=== PATIENT | male | born 1990 | race Caucasian/White ===

== ENCOUNTER 2025-01-27 11:37 | Inpatient (IN) | payer SELFPAY ==
[2025-01-27 12:23] LABS: Absolute Lymphocytes (CBC) 1.5 K/uL (0.7-4.9); Hematocrit 49.1 % (39.6-49.0); Hemoglobin 16.4 g/dL (13.6-17.9); MCH 31.6 pg (27.0-35.0); MCHC 33.4 g/dL (32.0-36.0); MCV 94.7 fL (80-100); MPV 7.9 fL (7.6-11.3); Nucleated RBC Absolute Count 0.0 (0-0); Nucleated Red Blood Cells % 0.0 % (0-0); RBC Red Blood Cell Count 5.18 M/uL (4.33-5.43); White Blood Count 17.60 thou/uL (4.3-10.9)
[2025-01-27] MEDS ORDERED: MORPHINE 4 MG/ML SYR ONE (12:29)
[2025-01-27] MEDS ORDERED: ONDANSETRON 4 MG/2 ML VIAL ONE (12:30)
[2025-01-27] MEDS ORDERED: NA CHLORIDE 0.9% 1,000 ML ONE (12:30)
[2025-01-27 12:41] LABS: ALT/SGPT 30.0 U/L (16-61); AST/SGOT 12.0 U/L (15-37); Albumin 3.8 g/dL (3.4-5.0); Albumin/Globulin Ratio 1.0 (1.1-1.8); Alkaline Phosphatase 81.0 U/L (45-117); Anion Gap 10.7 mEq/L (5.0-15.0); BUN Blood Urea Nitrogen 12.0 mg/dL (7-18); Globulin 3.9 g/dL (2.3-3.5); Glucose Level 113.0 mg/dL (74-106); Potassium 3.7 mEq/L (3.5-5.1)
--- NOTE | 2025-01-27 13:11 | RAD REPORT ---
EXAM: Scrotum Testicles HISTORY: 34 years Male Left sided swelling / drainage COMPARISON: None TECHNIQUE: Multiplanar grayscale and color Doppler images were obtained in a testicular/scrotal ultra sound. Spectral analysis of the Doppler waveforms of the testicles were performed. FINDINGS: Right testicle: Normal in echogenicity. No focal mass. Normal internal flow. The right testicle nalini ures 3.5 x 2 x 3.3 cm with volume of 12 mL. Left testicle: Normal in echogenicity. No focal mass. Normal internal flow. The left testicle measur es 5.4 x 2.2 x 3.7 cm with volume of 23.3 mL. Right epididymis. No epididymal cyst. Normal internal flow. Left epididymis. No epididymal cyst. Normal internal flow. No significant hydroceles. Bilateral varicoceles. At the area of concern in the left groin, there are areas of rounded masslike hypoechogenicity withou t vascular flow with intermixed areas of echogenicity. This may reflect some fluid and fat within a left inguinal hernia. IMPRESSION: Area of concern at the left groin corresponds with possible small fluid collections and interspersed echogenic fat that may represent an inguinal hernia. CT may be helpful to better characterize. Bilateral testicular blood flow. Bilateral varicoceles.
[2025-01-27] MEDS ORDERED: NA CHLORIDE 0.9% 100 ML ONE (13:29)
[2025-01-27] MEDS ORDERED: PIPERACIL/TAZO 3.375 GM VIAL IV ONE (13:30)
[2025-01-27 13:36] LABS: Blood Morphology Comment NOT SEEN (NOT SEEN); White Blood Cell Scan OK (OK)
--- NOTE | 2025-01-27 13:42 | ER ---
Nurse's Notes [facility] Name: Timo Sykes Age: 34 yrs Sex: Male : 1990 Arrival Date: 01/27/2025 Time: 11:37 Bed 10 Private MD: Diagnosis: Scrotal pain-abscess Presentation: 01/27 12:02 Chief complaint: Patient states: LT SCROTAL SWELLING, PAIN, REDNESS AND DRAINAGE. dd2 NOTICED ABOUT 4 DAYS AGO, WORSE THE PAST 2 DAYS. TOOK EXTRA ANTIBIOTICS FOUND AT THE HOUSE, BACTRIM. Coronavirus screen: At this time, the client does not indicate any symptoms associated with coronavirus-19. Ebola Screen: No symptoms or risks identified at this time. Initial Sepsis Screen: Does the patient meet any 2 criteria? No. Patient's initial sepsis screen is negative. Does the patient have a suspected source of infection? No. Patient's initial sepsis screen is negative. Risk Assessment: Do you want to hurt yourself or someone else? Patient reports no desire to harm self or others. Onset of symptoms was January 23, 2025. 12:02 Method Of Arrival: Ambulatory dd2 12:02 Acuity: HERMELINDO 3 dd2 Triage Assessment: 12:06 General: Appears in no apparent distress. uncomfortable, Behavior is calm, cooperative, dd2 appropriate for age. Pain: Complains of pain in scrotum. Historical: - Allergies: 12:05 tramadol; dd2 - PMHx: 12:05 None; dd2 - PSHx: 12:06 LT KNEE; dd2 - Social history:: Smoking status: Patient denies any tobacco usage or history of. Screenin:08 [facility] ED Fall Risk Assessment (Adult) History of falling in the last 3 months, iw including since admission No falls in past 3 months (0 pts) Confusion or Disorientation No (0 pts) Intoxicated or Sedated No (0 pts) Impaired Gait No (0 pts) Mobility Assist Device Used No (0 pt) Altered Elimination No (0 pt) Score/Fall Risk Level 0 - 2 = Low Risk Oriented to surroundings, Maintained a safe environment. Abuse screen: Denies threats or abuse. Nutritional screening: No deficits noted. Tuberculosis screening: No symptoms or risk factors identified. Assessment: 13:08 Reassessment: Patient appears in no apparent distress at this time. Patient and/or iw family updated on plan of care and expected duration. Pain level reassessed. Patient is alert, oriented x 3, equal unlabored respirations, skin warm/dry/pink. 14:25 Reassessment: Patient appears in no apparent distress at this time. Patient and/or iw family updated on plan of care and expected duration. Pain level reassessed. Patient is alert, oriented x 3, equal unlabored respirations, skin warm/dry/pink. 15:38 Reassessment: Patient appears in no apparent distress at this time. Patient and/or jb4 family updated on plan of care and expected duration. Pain level reassessed. Patient is alert, oriented x 3, equal unlabored respirations, skin warm/dry/pink. Vital Signs: 12:02 BP 141 / 78; Pulse 95; Resp 16; Temp 98.4; Pulse Ox 100% on R/A; Weight 81.65 kg; Pain dd2 4/10; 14:50 BP 120 / 75; Pulse 79; Resp 16; Pulse Ox 98% on R/A; iw 15:38 BP 130 / 68; Pulse 85; Resp 16; Pulse Ox 100% on R/A; jb4 12:02 Pain Scale: Adult dd2 ED Course: 11:43 Patient arrived in ED. cj3 11:47 Hardy Bowser FNP-C is PHCP. dr5 11:47 Merlin Linn DO is Attending Physician. dr5 12:05 Triage completed. dd2 12:06 Arm band placed on left wrist. dd2 12:14 Lorraine Watt, RN is Primary Nurse. iw 12:14 Initial lab(s) drawn, by me, sent to lab. Inserted saline lock: 20 gauge in right iw antecubital area, using aseptic technique. Blood collected. Flushed with 10 mL NS. 12:39 Scrotum Testicles US In Process Unspecified. EDMS 13:08 Patient has correct armband on for positive identification. Provided Education on: . iw 13:41 Archie Clark MD is Hospitalizing Provider. dr5 14:10 Inserted saline lock: 20 gauge in left antecubital area, using aseptic technique. Blood iw collected. Flushed with 10 mL NS. 14:28 No provider procedures requiring assistance completed. iw Administered Medications: 13:07 Drug: morphine IVP or IV 4 mg IVP once over 4 mins Route: IVP; Infused Over: 4 mins; iw Site: right antecubital; 13:07 Drug: Ondansetron IVP 4 mg IVP once; over 2 minutes Route: IVP; Site: right antecubital;iw 13:08 Drug: NS 0.9% IV 1000 ml IV at 1000 ml once; to be given as a bolus over 60 minutes iw Route: IV; Rate: 1000 ml; Site: right antecubital; 14:08 Follow up: IV Status: Completed infusion iw 14:25 Drug: Piperacillin-Tazobactam IVPB 3.375 grams IVPB once over 60 mins; (mix in NS 100 iw mL) Route: IVPB; Infused Over: 60 mins; Site: left antecubital; 15:10 Follow up: IV Status: Completed infusion iw Outcome: 13:41 Decision to Hospitalize by Provider. dr5 17:15 Patient left the ED. iw Signatures: Dispatcher [employer] EDLorraine Asher RN RN iw Suraj Hernandez RN RN jb4 J CARLOS NARAYAN RN RN dd2 Hardy Bowser, ROUTE AIDE-C ROUTE AIDE-[facility]5 Norma Watson cj3 Corrections: (The following items were deleted from the chart) 12:06 12:05 Allergies: No Known Allergies; dd2 dd2
--- NOTE | 2025-01-27 13:42 | EDPHYS ---
Physician Documentation [facility] Name: Timo Sykes Age: 34 yrs Sex: Male : 1990 Arrival Date: 01/27/2025 Time: 11:37 Bed 10 Private MD: ED Physician Merlin Linn HPI: 01/27 17:23 This 34 yrs old Male presents to ER via Ambulatory with complaints of Cyst - dr5 GROIN AREA. 17:23 Onset: The symptoms/episode began/occurred 4 day(s) ago. Patient is a 34-year-old male dr5 with no past medical history coming in with left scrotal pain and swelling has been going on for 4 days. Patient states that he noticed redness around follicle that has worsened. Patient reports that he has been trying to drain the wound with mild relief and purulent discharge. Patient denies penile pain, penile discharge, suprapubic abdominal pain.. Historical: - Allergies: 12:05 tramadol; dd2 - PMHx: 12:05 None; dd2 - PSHx: 12:06 LT KNEE; dd2 - Social history:: Smoking status: Patient denies any tobacco usage or history of. ROS: 17:23 Constitutional: as per hpi dr5 Exam: 17:23 Constitutional: This is a well developed, well nourished patient who is awake, alert, dr5 and in no acute distress. Head/Face: Normocephalic, atraumatic. Eyes: Pupils equal round and reactive to light, extra-ocular motions intact. Lids and lashes normal. Conjunctiva and sclera are non-icteric and not injected. Cornea within normal limits. Periorbital areas with no swelling, redness, or edema. ENT: Nares patent. No nasal discharge, no septal abnormalities noted. Tympanic membranes are normal and external auditory canals are clear. Oropharynx with no redness, swelling, or masses, exudates, or evidence of obstruction, uvula midline. Mucous membranes moist. Chest/axilla: Normal chest wall appearance and motion. Nontender with no deformity. No lesions are appreciated. Cardiovascular: Regular rate and rhythm with a normal S1 and S2. Normal PMI, no JVD. No pulse deficits. Respiratory: Lungs have equal breath sounds bilaterally, clear to auscultation. No rales, rhonchi or wheezes noted. No increased work of breathing, no retractions or nasal flaring. Abdomen/GI: Soft, non-tender, non-distended Back: No spinal tenderness. No costovertebral tenderness. Full range of motion. Skin: Warm, dry with normal turgor. Normal color with no rashes, no lesions, and no evidence of cellulitis. MS/ Extremity: Pulses equal, no cyanosis. Neurovascular intact. Full, normal range of motion. Neuro: Awake and alert, GCS 15, oriented to person, place, time, and situation. Cranial nerves II-XII grossly intact. Motor strength 5/5 in all extremities. Sensory grossly intact. Cerebellar exam normal. Normal gait. 17:23 : Male external genitalia: swelling: scrotal, that is moderate, CORAL Peters present during examination. Left scrotum has redness and tenderness concerning for abscess with purulent drainage. Tenderness to palpation., Vital Signs: 12:02 BP 141 / 78; Pulse 95; Resp 16; Temp 98.4; Pulse Ox 100% on R/A; Weight 81.65 kg; Pain dd2 4/10; 14:50 BP 120 / 75; Pulse 79; Resp 16; Pulse Ox 98% on R/A; iw 15:38 BP 130 / 68; Pulse 85; Resp 16; Pulse Ox 100% on R/A; jb4 12:02 Pain Scale: Adult dd2 MDM: 11:47 Medical Screening Exam initiated dr5 17:23 Differential diagnosis: viral Infection, bacterial infection, Scrotal abscess, dr5 orchitis, hydrocele, varicocele, testicular torsion. Data reviewed: vital signs, nurses notes, lab test result(s), CBC, white blood cell count, hemoglobin, hematocrit, platelets, electrolytes, sodium, potassium, chloride, serum bicarbonate, BUN, creatinine, serum glucose, Lactate, radiologic studies, ultrasound. Consideration of Admission/Observation Patient was admitted/placed on observation. Management of patient was discussed with the following: Hospitalist: Dr. Woods. Aquatic Centre Manager: Dr. Redd -Dr. Redd came down into room to evaluate patient prior to admission. Recommend n.p.o. at midnight and IV antibiotics and will take him to surgery tomorrow.. I considered the following discharge prescriptions or medication management in the emergency department I discussed and recommended Over The Counter medications, Medications were administered in the Emergency Department. See MAR. Historians other than the Patient: Spouse/Significant Other: Spouse. Care significantly affected by the following Social Determinants of Health: Poor access to healthcare and/or lack of insurance, Poor access to transportation, Problems related to employment. Counseling: I had a detailed discussion with the patient and/or guardian regarding the historical points, exam findings, and any diagnostic results supporting the discharge/admit diagnosis, the presence of at least one elevated blood pressure reading (>120/80) during this emergency department visit, lab results, radiology results, the need for further work-up and treatment in the hospital. Medication response: Response to treatment: the patient's symptoms have markedly improved after treatment. ED course: Patient was admitted to hospital with Dr. Redd as consult. Patient is agreeable to plan. 01/27 12:05 Order name: CBC with Diff; Complete Time: 13:39 dr5 01/27 12:05 Order name: CMP; Complete Time: 12:49 dr5 01/27 12:33 Order name: CBC Smear Scan; Complete Time: 13:39 EDMS 01/27 13:03 Order name: Blood Culture Adult (2) dr5 01/27 13:03 Order name: Lactate w/ 2H reflex if indic.; Complete Time: 14:53 dr5 01/27 14:45 Order name: CBC with Automated Diff EDMS 01/27 14:45 Order name: CBC with Automated Diff EDIN 01/27 14:45 Order name: Comprehensive Metabolic Panel EDIN 01/27 14:45 Order name: Comprehensive Metabolic Panel EDIN 01/27 12:05 Order name: Scrotum Testicles US; Complete Time: 13:23 dr5 01/27 14:45 Order name: CONS Physician Consult EDMS Administered Medications: 13:07 Drug: morphine IVP or IV 4 mg IVP once over 4 mins Route: IVP; Infused Over: 4 mins; iw Site: right antecubital; 13:07 Drug: Ondansetron IVP 4 mg IVP once; over 2 minutes Route: IVP; Site: right antecubital;iw 13:08 Drug: NS 0.9% IV 1000 ml IV at 1000 ml once; to be given as a bolus over 60 minutes iw Route: IV; Rate: 1000 ml; Site: right antecubital; 14:08 Follow up: IV Status: Completed infusion iw 14:25 Drug: Piperacillin-Tazobactam IVPB 3.375 grams IVPB once over 60 mins; (mix in NS 100 iw mL) Route: IVPB; Infused Over: 60 mins; Site: left antecubital; 15:10 Follow up: IV Status: Completed infusion iw Disposition: 19:12 I was immediately available on-site in the Emergency Department for consultation in the ms3 care of the patient. Disposition Summary: 01/27/25 13:41 Hospitalization Ordered Notes: Hospitalization Status: Inpatient Admission dr5 Provider: Archie Clark Location: Telemetry/MedSur (Inpatient) dr5 Condition: Stable dr5 Problem: new dr5 Symptoms: have worsened dr5 Bed/Room Type: Standard dr5 Room Assignment: 420(01/27/25 16:14) bd Diagnosis - Scrotal pain - abscess dr5 Forms: - Medication Reconciliation Form dr5 - SBAR form dr5 - Leadership Thank You Letter dr5 Signatures: Dispatcher [employer] EDMS Carol Ayala Irene, RN RN iw Merlin Linn DO DO ms3 J CARLOS NARAYAN RN RN dd2 Hardy Bowser, STUNTMAN-C STUNTMAN-Cdr5 Corrections: (The following items were deleted from the chart) 12:06 12:05 Allergies: No Known Allergies; dd2 dd2 16:14 13:41 dr5 bd
[2025-01-27] MEDS ORDERED: ONDANSETRON 4 MG/2 ML VIAL IV PRN (14:40)
--- NOTE | 2025-01-27 14:44 | P.HP ---
Certification for Inpatient Patient admitted to: Inpatient With expected LOS: >2 Midnights Patient will require the following post-hospital care: None Practitioner: I am a practitioner with admitting privileges, knowledge of patient current condition, hospital course, and medical plan of care. Services: Services provided to patient in accordance with Admission requirements found in Title 42 Section 412.3 of the Code of Federal Regulations Patient History Date of Service: 01/27/25 Reason for admission: Scrotal abscess History of Present Illness: Patient is 34-year-old gentleman came to the hospital with scrotal edema tenderness. Patient was found to have an abscess of the scrotum. General surgeon consulted. Allergies tramadol Allergy (Verified 01/27/25 17:35) Itching Home Medications: Hydrocodone 10/APAP 325 [[place] [address]] 1 tab PO Q8H PRN #30 tab 01/29/25 Smz./Tmp. [Bactrim Ds 800 MG/160 MG] 1 tab PO BID #14 tab 01/29/25 Sulfamethoxazole/Trimethoprim [Bactrim Ds Tablet] 1 each PO BID #14 01/29/25 levoFLOXacin [Levaquin] 750 mg PO DAILY #7 tab 01/29/25 - Past Medical/Surgical History Past Medical History: Patient denies medical history Past Surgical History: Patient denies surgical history - Family History Father Family History: Reviewed- Non-Contributory - Social History Smoking Status: Former smoker Alcohol use: No CD- Drugs: No Review of Systems 10-point ROS is otherwise unremarkable Physical Examination - Vital Signs Temperature: 101 F Blood Pressure: 140/80 Pulse: 80 Respirations: 18 Pulse Ox (%): 95 - Physical Exam General: Alert, In no apparent distress, Oriented x3 HEENT: Atraumatic, PERRLA, Mucous membr. moist/pink, EOMI, Sclerae nonicteric Neck: Supple, 2+ carotid pulse no bruit, No LAD, Without JVD or thyroid abnormality Respiratory: Clear to auscultation bilaterally, Normal air movement Cardiovascular: Regular rate/rhythm, Normal S1 S2 Gastrointestinal: Normal bowel sounds, No tenderness Musculoskeletal: No tenderness Integumentary: No rashes Neurological: Normal gait, Normal speech, Normal strength at 5/5 x4 extr, Normal tone, Normal affect Lymphatics: No axilla or inguinal lymphadenopathy External genitalia: Tenderness, Other ( Scrotal swelling and edema) - Studies Laboratory Data (last 24 hrs) 01/27/25 01/27/25 12:14 12:14 WBC 17.60 H Hgb 16.4 Hct 49.1 H Plt Count 311 Sodium 140 Potassium 3.7 BUN 12 Creatinine 1.10 Glucose 113 H Total Bilirubin 0.4 AST 12 L ALT 30 Alkaline Phosphatase 81 Assessment & Plan - Problems (Diagnosis) (1) Scrotal abscess Status: Acute - Plan 1. Continue with IV antibiotic 2. Continue with local wound care 3. Wound care consultation/surgical consultation 4. Gentle IV hydration 5. Monitor CBC 6. Strict blood sugar monitoring 7. Pain control 8. GI and DVT prophylaxis Discharge Plan: Home Plan to discharge in: Greater than 2 days - Advance Directives Does patient have a Living Will: No Does patient have a Durable POA for Healthcare: No - Code Status/Comfort Care Code Status Assessed: Yes Code Status: Full Code Critical Care: No Time Spent Managing PTS Care (In Minutes): 45
[2025-01-27 17:32] VITALS: BMI 22.5
[2025-01-27] MEDS: ACETAMINOPHEN 500 MG TAB PO PRN (18:13)
[2025-01-27] MEDS: NA CHLORIDE 0.9% 1,000 ML IV SCH (18:14)
[2025-01-27] MEDS: Levofloxacin 750mg IV 750 MG/150 ML BAG IV SCH (18:14)
[2025-01-27] MEDS: MORPHINE 2 MG/ML SYR IV PRN (19:09)
[2025-01-27] MEDS: VANCOMYCIN 1.5 GM in NA CHLORIDE 0.9% 500 ML IVPB SCH (19:40)
[2025-01-28 06:19] LABS: Absolute Lymphocytes (CBC) 1.0 K/uL (0.7-4.9); Hematocrit 40.8 % (39.6-49.0); Hemoglobin 14.1 g/dL (13.6-17.9); MCH 32.3 pg (27.0-35.0); MCHC 34.5 g/dL (32.0-36.0); MCV 93.6 fL (80-100); MPV 7.8 fL (7.6-11.3); Nucleated RBC Absolute Count 0.0 (0-0); Nucleated Red Blood Cells % 0.0 % (0-0); RBC Red Blood Cell Count 4.36 M/uL (4.33-5.43); White Blood Count 11.70 thou/uL (4.3-10.9)
[2025-01-28 06:39] LABS: ALT/SGPT 24.0 U/L (16-61); AST/SGOT 13.0 U/L (15-37); Albumin 2.9 g/dL (3.4-5.0); Albumin/Globulin Ratio 0.9 (1.1-1.8); Alkaline Phosphatase 61.0 U/L (45-117); Anion Gap 9.2 mEq/L (5.0-15.0); BUN Blood Urea Nitrogen 7.0 mg/dL (7-18); Globulin 3.4 g/dL (2.3-3.5); Glucose Level 120.0 mg/dL (74-106); Potassium 4.2 mEq/L (3.5-5.1)
[2025-01-28] MEDS ORDERED: FENTANYL CITR 100 MCG/2 ML ONE ×2 (10:32→12:35)
[2025-01-28] MEDS ORDERED: LIDOCAINE 2% MPF 5 ML VIAL ONE (10:32)
[2025-01-28] MEDS ORDERED: MIDAZOLAM HCL 2 MG/2 ML INJ ONE (10:32)
[2025-01-28] MEDS: BUPIVACAINE 0.5% PF 10 ML VIAL ONE (13:04)
[2025-01-28] MEDS ORDERED: ONDANSETRON 4 MG/2 ML VIAL ONE (13:10)
[2025-01-28] MEDS ORDERED: KETOROLAC 30 MG/ML INJ ONE (13:13)
--- NOTE | 2025-01-28 13:39 | P.BOP ---
Preoperative diagnosis: Left groin abscess Postoperative diagnosis: same Primary procedure: Incision and drainage of Left groin complex abscess 13x3x1 Estimated blood loss: <10cc Specimen: pus Findings: abscess Anesthesia: General Drain(s): Nasogastric Transferred to: Recovery Room Condition: Good
[2025-01-28] MEDS: HYDROMORPHONE HCL 1 MG/ML INJ ONE (13:55)
[2025-01-28 13:59] VITALS: O2SAT 98
--- NOTE | 2025-01-28 15:11 | CON ---
Date of Consultation: 01/28/2025 Diagnosis: Left groin and scrotal skin abscess. History Of Present Illness: This is a case of a 34-year-old patient for 4-day history of swelling of the left groin and the base of the scrotum. Diagnosed with an abscess and a surgical consult was ob tained. He denies any trauma. He denies any dysuria, hematuria, hematochezia, or melena. He denies any recent traveling out of the country. He denies any family member sick at home. Review of Systems: Ten points otherwise unremarkable. Past Medical History: Include none. Past Surgical History: Left knee surgery. Allergies: TRAMADOL. Social History: He does not smoke. He does not drink alcohol. Physical Examination: Vital Signs: Stable. General: The patient is awake and alert. HEENT: Pupils are equal and reactive. Anicteric. Neck: Supple. Chest: Clear. Heart: S1, S2. Abdomen: Soft and depressible. No guarding or rebound. Skin: Perineum over the left groin and left scrotal area, patient has a subcutaneous abscess present with the purulent discharge coming already. fluctuance present. Rectal not involved. Extremities: Good capillary refill. Laboratory Data: Blood work shows WBC count of 17.6, hemoglobin of 16.4, and platelets of 311 with a potassium 3.7, creatinine is 1.1. The scrotal ultrasound shows hydrocele, spermatocele. Good testi cular blood flow. Small fluid collection in the area of the fatty tissue and the skin outside going to the left groin area. Assessment: Abscess of the left groin and base of the scrotum. Benefits, alternatives, and risks of incision and drainage with debridement fully explained, which include, but not limited to, infection , bleeding, damage to adjacent structures, anesthesia complication, nonhealing wound, MA, and even de ath. He also understands this may not relieve any symptoms, he might need more than one surgical int ervention. He understands that when this infection is over, he has to address this issue with the ur ologist since he has varicoceles present. From the surgical standpoint, also when the infection is g one, we are going to have to evaluate him again for possibility of hernias that may be addressed once the infection is gone. KALYANI/JHON Voice ID: [id number] Report ID: [id number]
--- NOTE | 2025-01-28 20:56 | OP ---
Date of Procedure: 01/28/2025 Surgeon: Jayson Redd MD Preoperative Diagnosis: Left groin abscess. Postoperative Diagnosis: Left groin abscess. Procedure: Incision and drainage of left groin abscess 13 x 3 x 1 cm. Estimated Blood Loss: Less than 10 cc. Specimen: Pus. Findings: Abscess. The abscess started from the left groin area extended subcutaneously, on to the base of the scrotum is the area where the abscess was trying to rupture. When we opened that skin an d retracted that, this does not seem to be connecting to the scrotum inside. It just tracked in the subcutaneous tissue into the left groin area. We explored that area. That is why, it is about 13 cm long. A large amount of pus obtained. Area was profusely irrigated before closure. Indications: This is a case of a 34-year-old patient who came to us with left groin abscess, erythem a, increased temperature. The benefits, alternatives, and risks of I and D left groin abscess fully explained, which include, but not limited to, infection, bleeding, damage to adjacent structures, ane sthesia complication, recurrence, NH, and even . He also understands this may not relieve any s ymptoms, he might need more than one surgical intervention. He understood, signed a consent. Description Of Procedure: The area of concern was marked by me and the patient in the holding room. The patient was brought to the operating room, placed in supine position. Anesthesia was induced wi thout complication. Left groin and genitalia were prepped and draped in a sterile fashion. A time-o ut was done. Local anesthetic was applied followed by sharp incision of the skin where we saw the pu s trying to drain. When we opened that skin, we noticed the abscess to extend proximally into the le ft groin region. With my finger, we were able to explore that abscess. A large amount of pus came t hrough, does not seem to be going inside the scrotum, at least the cavity, and then we do not feel an y intestines coming through it neither. So, all the pus was drained. The area was profusely irrigat ed and then we packed the area with Iodoform quarter of an inch and sterile dressings. Sponge counts and instrument counts were correct. The patient was sent to Recovery in stable condition. HM/MODL Voice ID: [id number] Report ID: [id number]
[2025-01-28] MEDS: HYDROCODONE/APAP 5/325 MG TAB PO PRN (22:02)
[2025-01-29] MEDS ORDERED: VANCOMYCIN 1.75 GM in NA CHLORIDE 0.9% 500 ML IVPB SCH (18:00)
[2025-02-01 12:47] VITALS: BP 140/80; TEMP 101
== END 2025-01-29 17:30 | disposition home or self-care (01) | DRG 603 ==
LOC: ER 11:37 → ERHOLD 14:40 → 4TH 16:53
PROVIDERS: ADMIT Hospitalist; ATTEND Hospitalist
PROC: 0J9C0ZZ Drainage of Pelvic Region Subcutaneous Tissue and Fascia, Open Approach (ICD-10-PCS; principal; 2025-01-28 12:00)
DX: L02.214 Cutaneous abscess of groin (principal); N49.2 Inflammatory disorders of scrotum; Z56.0 Unemployment, unspecified; Z88.5 Allergy status to narcotic agent; Z59.82 Transportation insecurity; Z59.71 Insufficient health insurance coverage; Z79.899 Other long term (current) drug therapy; Z87.891 Personal history of nicotine dependence
CPT/HCPCS: 36415; 76870; 80053; 80202; 83605; 85025; 87040; 87070; 87075; 87077; 87186; 87205; 88304; 88305; 94010; 96361; 96365; 96375; 99284; J1100; J1171; J1885; J2003; J2250; J2270; J2405; J2543; J2704; J3010; J3373; J7030; J7040